=== PATIENT | female | born 1970 | race Caucasian/White ===

== ENCOUNTER 2017-06-26 11:26 | Emergency (ER) | payer OTHER ==
[2017-06-26 14:40] VITALS: BP 131/77
--- NOTE | 2017-06-26 14:41 | UC ---
Eye Complaint HPI - HPI Summary HPI Summary: 4 DAYS AGO SUDDEN ONSET OF LEFT EYE REDNESS, PHOTOPHOBIA AND BLURRY VISION. FEELS ACHY. NO DRAINAGE OR PAIN WITH EOM. NO FB SENSATION. NO NAUSEA. HAD HUGHES AT ONSET OF SX BUT NOW IS RESOLVED. - History of Current Complaint Chief Complaint: UCEye Stated Complaint: EYE COMPLAINT Time Seen by Provider: 06/26/17 14:00 Hx Obtained From: Patient Hx Last Menstrual Period: 03/2017 Onset/Duration: Sudden Onset, Lasting Days, Still Present Timing: Constant Severity Initially: Moderate Severity Currently: Moderate Pain Intensity: 7 Pain Scale Used: 0-10 Numeric Location of Injury: Conjunctiva Character: Dull Aggravating Factor(s): Light, Blinking Associated Signs And Symptoms: Positive: Photophobia, Vision Impairment Left. Negative: Drainage (Clear), Drainage (Purulent) - Allergies/Home Medications Allergies/Adverse Reactions: Allergies Allergy/AdvReac Type Severity Reaction Status Date / Time No Known Allergies Allergy Verified 06/26/17 12:06 Home Medications: Home Medications Naproxen Sodium [Naproxen Sodium 220 mg] 3 tab PO BID PRN 06/26/17 [History Confirmed 06/26/17] PMH/Surg Hx/FS Hx/Imm Hx Previously Healthy: Yes - Surgical History Surgical History: None - Family History Known Family History: Positive: Hypertension, Other - OSTEOPENIA/breast CA - Social History Alcohol Use: Occasionally Substance Use Type: None Smoking Status (MU): Heavy Every Day Tobacco Smoker Type: Cigarettes Amount Used/How Often: 1ppd Household Exposure Type: Cigarettes - Immunization History Most Recent Influenza Vaccination: NOT UTD Most Recent Tetanus Shot: 2016 Review of Systems Constitutional: Negative Eyes: Blurred Vision, Eye Redness, Photophobia Respiratory: Negative Cardiovascular: Negative Gastrointestinal: Negative All Other Systems Reviewed And Are Negative: Yes Physical Exam Triage Information Reviewed: Yes Appearance: Well-Appearing, No Pain Distress, Well-Nourished Vital Signs: Initial Vital Signs Temp 98.2 F 06/26/17 11:59 Pulse 84 06/26/17 11:59 Resp 16 06/26/17 11:59 BP 127/67 06/26/17 11:59 Pulse Ox 95 06/26/17 11:59 Vital Signs Reviewed: Yes Eyes: Positive: Conjunctiva Inflamed - LEFT, Other: - PERRL, EOMI. Negative: Discharge ENT: Positive: Hearing grossly normal Neck: Positive: Supple Respiratory: Positive: No respiratory distress, No accessory muscle use Cardiovascular: Positive: Pulses Normal Abdomen Description: Positive: Soft Musculoskeletal: Positive: No Edema Neurological: Positive: Alert Psychological: Positive: Age Appropriate Behavior Skin: Negative: rashes Eye Complaint Course/Dx - Course Course Of Treatment: CALLED DR. GREGG'S OFFICE. THEY WILL SEE HER DIRECTLY . - Differential Dx/Diagnosis Provider Diagnoses: LEFT EYE PAIN AND BLURRY VISION Discharge - Discharge Plan Condition: Stable Disposition: HOME Patient Education Materials: Blurred Vision (ED), Eye Pain (ED) Forms: *Gen. Provider Communication, *Work Release Referrals: Ambar Moraes MD [Medical Doctor] - (GO DIRECTLY ACROSS [address] TO [facility] FROM HERE FOR EVAL. DR. MORAES WILL SEE YOU.)
== END 2017-06-26 14:28 | disposition home or self-care (01) ==
LOC: UCEAST 11:26
DX: H57.12 Ocular pain, left eye (principal); H53.8 Other visual disturbances; F17.210 Nicotine dependence, cigarettes, uncomplicated
CPT/HCPCS: 99212; G0463